=== PATIENT | female | born 1945 | race Caucasian/White ===

== ENCOUNTER 2016-12-21 13:38 | Outpatient (CLI) | payer OTHER ==
[2016-12-21 18:55] LABS: HEMOGLOBIN A1C 0.5 g/dL
[2016-12-21 19:01] LABS: BUN - BLOOD UREA NITROGEN 18 mg/dL (6-20); CALCIUM 9.2 mg/dL (8.5-10.3); CARBON DIOXIDE - CO2 30 mmol/L (21-32); CHLORIDE 102 mmol/L (101-111); CHOL/HDL RATIO 3.2 (<4.4); CHOLESTEROL 162 mg/dL; GFR - MDRD 54 (>89); GLUCOSE 101 mg/dL (70-100); HDL CHOLESTEROL 51 mg/dL; LDL/HDL RATIO 1.9 (<4.4); POTASSIUM 4.3 mmol/L (3.5-5.0); SODIUM 138 mmol/L (135-145); TRIGLYCERIDES 77 mg/dL; VLDL CHOLESTEROL 15 mg/dL
== END 2016-12-21 13:39 | disposition home or self-care (01) ==
LOC: LAB.F 13:38
PROVIDERS: ATTEND Internal Medicine
DX: N19 Unspecified kidney failure (principal); R73.01 Impaired fasting glucose
CPT/HCPCS: 36415; 80048; 80061; 83036

== ENCOUNTER 2017-03-19 14:13 | Outpatient (CLI) | payer MEDICARE ==
--- NOTE | 2017-03-20 19:14 | Mammography Report ---
DIGITAL SCREENING MAMMOGRAM: 03/19/2017 CLINICAL INDICATION: A 71-year-old with history of late childbearing for screening. COMPARISON: 09/2015, 06/2011, 05/2009. TECHNIQUE: Routine CC and MLO projections were obtained of the breasts. FINDINGS: Scattered fibroglandular tissue is present within the breasts. There are no dominant mass es, suspicious microcalcifications, or secondary signs of malignancy. In comparison to the previous s tudies, there are no significant changes. ASSESSMENT: NO MAMMOGRAPHIC EVIDENCE OF MALIGNANCY. NO SIGNIFICANT INTERVAL CHANGES. RECOMMENDATION: Screening mammography is recommended annually. BIRADS category 1 - negative. STANDARD QUALIFYING STATEMENTS 1. This examination was reviewed with the aid of Computed-Aided Detection (CAD). 2. A negative or benign imaging report should not delay biopsy if clinically suspicious findings are present. Consider surgical consultation if warranted. More than 5% of cancers are not identified b y imaging. 3. Dense breasts may obscure an underlying neoplasm. JOB #: [id number] EXT JOB #:[id number]
== END 2017-03-19 14:14 | disposition home or self-care (01) ==
LOC: DI 14:13
PROVIDERS: ATTEND Internal Medicine
DX: Z12.31 Encounter for screening mammogram for malignant neoplasm of breast (principal)
CPT/HCPCS: 77067

== ENCOUNTER 2017-03-19 14:14 | Outpatient (CLI) | payer MEDICARE, OTHER ==
--- NOTE | 2017-03-21 14:54 | DEXA Report ---
DEXA SCAN: 03/19/2017 CLINICAL INDICATION: Postmenopausal. TECHNIQUE: Dual energy x-ray absorptiometry (DXA) was performed on a Rayspan system. Regions measured are the AP spine, femoral neck, and, if needed, forearm. COMPARISON: None. In accordance with the International Society for Clinical Densitometry (ISCD) guidelines, data from previous exams may be reanalyzed using current recommendations and techniques. This is done to allow a more accurate basis for comparison with the current study. FINDINGS The data for the lumbar spine is as follows: REGION BMD (g/cm/cm) T-SCORE Z-SCORE L1 1.422 2.4 4.0 L2 1.376 1.5 3.0 L3 1.575 3.1 4.7 L4 1.970 6.4 8.0 TOTAL 1.603 3.5 5.1 NOTE: All evaluable vertebrae are used for classification. The data for the hip is as follows: REGION BMD (g/cm/cm) T-SCORE Z-SCORE Neck 1.125 0.6 2.4 TOTAL 1.139 1.0 2.6 NOTE: The femoral neck or total proximal femur, whichever is lowest, is used for classification. IMPRESSION: THE WHO CLASSIFICATION BASED ON THE INTERNATIONAL REFERENCE STANDARD IS NORMAL. THE FRACTURE RISK IS NOT INCREASED. RECOMMENDATION: Patients with diagnosis of osteoporosis or osteopenia should have regular bone mineral density assessment. For those eligible for Medicare, routine testing is allowed once every 2 years. Testing frequency can be increased for patients who have rapidly progressing disease or for those who are receiving medical therapy to restore bone mass. COMMENT: World Health Organization (WHO) definitions for osteoporosis and osteopenia: NORMAL BMD: T-score at -1.0 or higher, fracture risk is low. OSTEOPENIA BMD: T-score between -1.0 and -2.5, fracture risk is increased. OSTEOPOROSIS BMD: T-score at -2.5 or lower, fracture risk high. National Osteoporosis Foundation recommends: 1. Obtain adequate dietary calcium (at least 1200 mg per day) and vitamin D (400 -800 international units per day). 2. Participate, as appropriate, in regular weightbearing and muscle- strengthening exercise. 3. Avoid tobacco use and reduce alcohol and caffeine intake. 4. For more detailed information see the website at www.NOF.org. MTDD
== END 2017-03-19 14:15 | disposition home or self-care (01) ==
LOC: DI 14:14
PROVIDERS: ATTEND Internal Medicine
DX: Z13.820 Encounter for screening for osteoporosis (principal)
CPT/HCPCS: 77080

== ENCOUNTER 2018-01-10 14:35 | Outpatient (CLI) | payer MEDICARE ==
[2018-01-10 15:00] LABS: CALCIUM 9.2 mg/dL (8.5-10.3); CREATININE 1.2 mg/dL (0.4-1.0)
== END 2018-01-10 14:36 | disposition home or self-care (01) ==
LOC: LAB 14:35
PROVIDERS: ATTEND Internal Medicine
DX: N19 Unspecified kidney failure (principal)
CPT/HCPCS: 36415; 80048

== ENCOUNTER 2018-05-03 09:08 | Outpatient (CLI) | payer MEDICARE ==
[2018-05-03 17:49] LABS: BASOPHILS % (AUTO) 0.7 %; EOSINOPHILS # (AUTO) 0.4 10^3/uL (0.0-0.7); EOSINOPHILS % (AUTO) 6.4 %; HGB - HEMOGLOBIN 13.2 g/dL (12.0-16.0); LYMPHOCYTES # (AUTO) 3.4 10^3/uL (1.5-3.5); LYMPHOCYTES % (AUTO) 53.4 %; MEAN CORPUSCULAR HEMOGLOBIN 29.3 pg (27.0-31.0); MEAN CORPUSCULAR HGB CONC 32.3 g/dL (32.0-36.0); MEAN CORPUSCULAR VOLUME 90.8 fL (81.0-99.0); MEAN PLATELET VOLUME 8.8 fL (7.9-10.8); MONOCYTES # (AUTO) 0.6 10^3/uL (0.0-1.0); MONOCYTES % (AUTO) 8.7 %; NEUTROPHILS % (AUTO) 30.8 %; PLT - PLATELET COUNT 240 10^3/uL (130-450); RED BLOOD COUNT 4.48 10^6/uL (4.20-5.40); RED CELL DISTRIBUTION WIDTH 13.8 % (12.0-15.0); WHITE BLOOD COUNT 6.4 x10^3/uL (4.8-10.8)
[2018-05-03 18:13] LABS: HEMOGLOBIN A1C 0.47 g/dL; HEMOGLOBIN A1C % 5.2 % (4.6-6.2)
[2018-05-03 18:20] LABS: ALBUMIN 4.1 g/dL (3.2-5.5); ALBUMIN/GLOBULIN RATIO 1.4 (1.0-2.2); ALKALINE PHOSPHATASE 89 IU/L (42-121); ALT ALANINE AMINOTRANSFERASE 43 IU/L (10-60); AST ASPARTATE AMINOTRANSFERASE 31 IU/L (10-42); BILIRUBIN,TOTAL 0.3 mg/dL (0.2-1.0); BUN - BLOOD UREA NITROGEN 24 mg/dL (6-20); CALCIUM 9.1 mg/dL (8.5-10.3); CARBON DIOXIDE - CO2 28 mmol/L (21-32); CHLORIDE 106 mmol/L (101-111); CHOL/HDL RATIO 4.2 (<4.4); CHOLESTEROL 179 mg/dL; GFR - MDRD 54 (>89); GLUCOSE 107 mg/dL (70-100); HDL CHOLESTEROL 43 mg/dL; LDL CHOLESTEROL,CALCULATED 113 mg/dL; LDL/HDL RATIO 2.6 (<4.4); SODIUM 140 mmol/L (135-145); VLDL CHOLESTEROL 23 mg/dL
== END 2018-05-03 09:09 | disposition home or self-care (01) ==
LOC: LAB.F 09:08
PROVIDERS: ATTEND Internal Medicine
DX: R73.01 Impaired fasting glucose (principal); Z13.6 Encounter for screening for cardiovascular disorders; M54.5 Low back pain; M79.605 Pain in left leg; M79.604 Pain in right leg; N19 Unspecified kidney failure; F34.1 Dysthymic disorder; Z12.12 Encounter for screening for malignant neoplasm of rectum
CPT/HCPCS: 36415; 80053; 80061; 83036; 83721; 84443; 85025

== ENCOUNTER 2019-02-04 10:34 | Outpatient (CLI) | payer MEDICARE ==
--- NOTE | 2019-02-04 12:13 | XRAY Report ---
Reason: COUGH Procedure Date: 02/04/2019 Accession Number: [id number] / [id number] Procedure: XRS - Chest 2 View X-Ray CPT Code: 66536 FULL RESULT: EXAM: CHEST RADIOGRAPHY EXAM DATE: 02/04/2019 10:49 AM. CLINICAL HISTORY: COUGH. COMPARISON: None. TECHNIQUE: 2 views. FINDINGS: Lungs/Pleura: No focal opacities evident. No pleural effusion. No pneumothorax. Normal volumes. Mediastinum: Heart and mediastinal contours are unremarkable. Other: None. IMPRESSION: Normal 2-view chest radiography. RADIA
== END 2019-02-04 10:35 | disposition home or self-care (01) ==
LOC: DI.S 10:34
PROVIDERS: ATTEND Internal Medicine
DX: R05 Cough (principal)
CPT/HCPCS: 71046

== ENCOUNTER 2019-05-19 08:00 | Outpatient (CLI) | payer MEDICARE | END 2019-05-19 23:59 | disposition home or self-care (01) | LOC: LAB.R 08:00 | PROVIDERS: ATTEND Internal Medicine | DX: Z12.11 Encounter for screening for malignant neoplasm of colon (principal); Z12.12 Encounter for screening for malignant neoplasm of rectum | CPT/HCPCS: 82274 ==

== ENCOUNTER 2020-03-30 12:56 | Outpatient (CLI) | payer MEDICARE ==
--- NOTE | 2020-03-30 16:50 | MRI Report ---
PROCEDURE: Cervical Spine W/O INDICATIONS: SPINAL STENOSIS, LEG WEAKNESS, RADICULOPATHY TECHNIQUE: Noncontrast sagittal T1 spin echo and T2 fast spin echo, sagittal STIR, foraminal oblique sagittal T2 fast spin echo, and axial gradient echo or T2 fast spin echo through the cervical spine. COMPARISON: None. FINDINGS: Image quality: Excellent. Alignment and Curvature: There is normal bony alignment. Bone Marrow: Discogenic marrow signal changes along the endplates. No suspicious focal marrow signal abnormality or bone marrow edema. Spinal Cord: Visualized spinal cord has normal size and signal. No cerebellar tonsillar herniation. Regional Soft Tissues: No paravertebral masses. Prevertebral soft tissues are normal in thickness. C2-C3: No spinal canal or neural foraminal stenosis. C3-C4: Posterior disc-osteophyte complex flattens and indents the ventral thecal sac and the right paracentral and subarticular zones. Facet and uncovertebral hypertrophy contribute to moderate right and mild left neural foraminal stenosis. C4-C5: Posterior disc-osteophyte complex flattens the ventral thecal sac. No mass effect upon the co rd. Facet and uncovertebral hypertrophy contribute to severe right and moderate left neural foraminal stenosis. C5-C6: Posterior disc osteophyte complex flattens the ventral thecal sac, completely effacing CSF ve ntral to the cord and mildly flattening the cord ventrally. Facet uncovertebral hypertrophy contribut e to severe left and right and moderate left neural foraminal stenosis. C6-C7: Posterior disc-osteophyte complex flattens the ventral thecal sac, effacing CSF ventral to th e cord and slightly flattening the ventral cord. Facet and uncovertebral hypertrophy. Moderate bilate ral neural foraminal stenosis. C7-T1: No spinal canal or neural foraminal stenosis. IMPRESSION: Advanced multilevel multifactorial degenerative changes. Moderate spinal canal stenosis at C5-C6 and C6-C7. Varying degrees of neural foraminal stenosis, severe on the right at C4-C5 and left at C5-C6. Reviewed by: Dawood Belle MD on 03/30/2020 4:49 PM PDT Approved by: Dawood Belle MD on 03/30/2020 4:49 PM PDT Station ID: [id number]
--- NOTE | 2020-03-30 17:17 | MRI Report ---
PROCEDURE: Lumbar Spine W/O INDICATIONS: SPINAL STENOSIS, LEG WEAKNESS, RADICULOPATHY TECHNIQUE: Noncontrast sagittal T1 spin echo and T2 fast echo, sagittal STIR, axial T1 and T2 fast spin echo thr ough the lumbar spine. In cases with scoliosis, additional coronal T2 fast spin echo may be performe d. COMPARISON: None. FINDINGS: Image quality: Excellent. Alignment and Curvature: Anterolisthesis of L4 on L5 measuring 7 mm. No definite evidence of an assoc iated pars defect. Otherwise normal alignment. Vertebral body heights maintained. Bone Marrow: Degenerative endplate changes at multiple levels including mildly edematous marrow signa l change at the L4-L5 and L5-S1 endplates. There is also periarticular marrow edema extending into th e pedicles from L3-L4 through L5-S1 related to facet osteophyte or adenopathy. No suspicious focal ma rrow signal abnormality. Spinal Cord: Normal position and appearance of the conus. Regional Soft Tissues: Mild soft tissue edema surrounding the L3-L4 through L5-S1 facets. T12-L1 and L1-L2: No spinal canal or neural foraminal stenosis. L2-L3: Mild bilateral neural foraminal stenosis related to foraminal components of a diffuse disc bul ge. No spinal canal stenosis. L3-L4: Diffuse disc bulge and a superimposed broad-based posterior disc protrusion flattens and ind ents the ventral thecal sac with mild mass effect upon the traversing L4 nerve roots. Foraminal compo nents of a disc bulge combine with facet facet hypertrophy and buckling of the ligamentum flavum to p roduce mild bilateral neural foraminal stenosis. L4-L5: Pseudobulge related to the anterolisthesis combines with a true disc bulge, bulky facet hype rtrophy, and buckling of the ligamentum flavum to produce overall moderate spinal canal stenosis with severe bilateral subarticular zone stenosis. Suspect impingement of the L5 nerve roots. There is a s ynovial cyst of the right facet measuring 7 mm which further contributes to spinal canal and subartic ular zone stenosis. Foraminal components of a disc bulge combined with neural foraminal height loss, facet hypertrophy, and buckling of the ligamentum flavum to produce severe right and moderate left ne ural foraminal stenosis. There is flattening and deformation of the exiting right L4 nerve root by di sc material within the neural foramen. L5-S1: Diffuse disc bulge and a superimposed broad-based posterior disc protrusion flattening the s ac. Disc material abuts and mildly displaces the descending S1 nerve roots within both subarticular z ones. Foraminal components of the disc bulge contribute to severe left and moderate right neural fora devante stenosis. There is flattening and deformation of the exiting left L5 nerve root by disc materia l within the neural foramen. IMPRESSION: Multilevel multifactorial degenerative changes worst at L4-L5 and L5-S1. Correlate for any correspond ing L4-L5 radicular symptoms. Reviewed by: Dawood Belle MD on 03/30/2020 5:15 PM PDT Approved by: Dawood Belle MD on 03/30/2020 5:15 PM PDT Station ID: [id number]
== END 2020-03-30 12:57 | disposition home or self-care (01) ==
LOC: DI 12:56
PROVIDERS: ATTEND Internal Medicine
DX: M47.812 Spondylosis without myelopathy or radiculopathy, cervical region (principal); M50.31 Other cervical disc degeneration, high cervical region; M48.02 Spinal stenosis, cervical region; M51.26 Other intervertebral disc displacement, lumbar region; M47.816 Spondylosis without myelopathy or radiculopathy, lumbar region; M43.16 Spondylolisthesis, lumbar region; M47.817 Spondylosis without myelopathy or radiculopathy, lumbosacral region; M51.06 Intervertebral disc disorders with myelopathy, lumbar region; M51.16 Intervertebral disc disorders with radiculopathy, lumbar region; M48.061 Spinal stenosis, lumbar region without neurogenic claudication; M51.37 Other intervertebral disc degeneration, lumbosacral region; M48.07 Spinal stenosis, lumbosacral region; M51.27 Other intervertebral disc displacement, lumbosacral region
CPT/HCPCS: 72141; 72148

== ENCOUNTER 2020-04-23 11:24 | Outpatient (CLI) | payer MEDICARE ==
[2020-04-23 15:20] LABS: ALBUMIN 4.5 g/dL (3.2-5.5); ALBUMIN/GLOBULIN RATIO 1.6 (1.0-2.2); BILIRUBIN,TOTAL 0.8 mg/dL (0.2-1.0); CALCIUM 9.2 mg/dL (8.5-10.3); TOTAL PROTEIN 7.3 g/dL (6.7-8.2)
[2020-04-23 15:37] LABS: THYROID STIMULATING HORMONE 2.02 uIU/mL (0.34-5.60)
[2020-04-23 15:39] LABS: FREE T4 (FREE THYROXINE) 1.04 ng/dL (0.58-1.64)
[2020-04-23 20:08] LABS: HEMOGLOBIN A1c% 5.1 % (4.27-6.07)
== END 2020-04-23 11:25 | disposition home or self-care (01) ==
LOC: LAB.S 11:24
PROVIDERS: ATTEND Internal Medicine
DX: R73.01 Impaired fasting glucose (principal); E02 Subclinical iodine-deficiency hypothyroidism; Z79.899 Other long term (current) drug therapy
CPT/HCPCS: 36415; 80053; 83036; 84439; 84443

== ENCOUNTER 2021-04-21 10:13 | Outpatient (CLI) | payer MEDICARE ==
--- NOTE | 2021-04-21 13:29 | MRI Report ---
PROCEDURE: Lumbar Spine W/O INDICATIONS: LUMBAR SPINAL STENOSIS TECHNIQUE: Noncontrast sagittal T1 spin echo and T2 fast echo, sagittal STIR, axial T1 and T2 fast spin echo thr ough the lumbar spine. In cases with scoliosis, additional coronal T2 fast spin echo may be performe d. COMPARISON: MRI of the lumbar spine dated 03/30/2020 FINDINGS: Image quality: Excellent. Alignment and Curvature: No plain films are available for comparison. Thus, for numbering purposes, 5 lumbar type vertebral bodies will be presumed for the current report. This should be confirmed with plain film correlation prior to any lumbar spinal intervention. There is mild, grade 1 anterolisthes is of L4 on L5. Bone Marrow: Marrow is of normal overall signal. No acute vertebral body compression fractures. Mo derate reactive signal within the end plates adjacent to the L4-L5 and L5-S1 intervertebral discs. Mi ld reactive signal within the end plates adjacent to the L1-L2, L2-L3, and L3-L4 intervertebral discs . Spinal Cord: Conus medullaris terminates at the lower L1 level. Visualized cord demonstrates normal signal and size. Paraspinous Soft Tissues: No paravertebral masses. T12-L1: Mild disc height loss and desiccation. Mild facet and ligament flavum hypertrophy. Mild mehnaz l stenosis. No foraminal stenosis. No significant change. L1-L2: Mild facet and ligament flavum hypertrophy. Mild epidural lipomatosis. Mild canal stenosis. Mild bilateral foraminal stenosis. No significant change. L2-L3: Mild disc desiccation and diffuse disc bulge. Mild facet and ligament flavum hypertrophy. M ild epidural lipomatosis. Mild canal stenosis. Mild bilateral foraminal stenosis. No significant kraft ge. L3-L4: Mild disc height loss and desiccation. Mild diffuse disc bulge. Mild facet and ligament flav um hypertrophy. Mild epidural lipomatosis. Moderate canal stenosis. Mild bilateral foraminal stenosis . No significant change. L4-L5: Severe disc height loss and desiccation. Mild diffuse disc bulge with superimposed broad-bas ed right far lateral protrusion/osteophyte. Moderate facet and ligament flavum hypertrophy. Mild epid ural lipomatosis. There is increased, moderate to severe canal stenosis. There is severe right and mo derate left subarticular foraminal stenosis. Right L4 nerve root compression. No significant change. L5-S1: Moderate disc height loss and desiccation. Mild diffuse disc bulge. Mild facet and ligament flavum hypertrophy. Mild canal stenosis. Severe left and moderate to severe right foraminal stenosis. Left greater than right L5 nerve root compression. No significant change. IMPRESSION: 1. Multilevel degenerative disc and facet disease, in addition to epidural lipomatosis and ligamentum flavum hypertrophy. 2. Multilevel canal stenoses, worst at L4-L5 where there is moderate to severe canal stenosis. 3. Multilevel foraminal stenoses, worst at L4-L5 and L5-S1, where there is associated intraforaminal nerve root compression. Recommend correlation with clinical symptoms to ascertain relevance of these findings. 4. Five lumbar type vertebral bodies were presumed for the purposes of the current report. Correlati on with plainfilms for numbering purposes is recommended prior to any lumbar spinal intervention. Reviewed by: Steve Liao MD on 04/21/2021 1:27 PM PST Approved by: Steve Liao MD on 04/21/2021 1:27 PM PST Station ID: [id number]
== END 2021-04-21 10:14 | disposition home or self-care (01) ==
LOC: DI 10:13
PROVIDERS: ATTEND Family Medicine
DX: M47.816 Spondylosis without myelopathy or radiculopathy, lumbar region (principal); E88.2 Lipomatosis, not elsewhere classified; M51.36 Other intervertebral disc degeneration, lumbar region; M48.062 Spinal stenosis, lumbar region with neurogenic claudication; M48.07 Spinal stenosis, lumbosacral region

== ENCOUNTER 2021-08-22 08:00 | Outpatient (CLI) | payer MEDICARE ==
[2021-08-22 15:48] LABS: BASOPHILS % (AUTO) 0.4 %; EOSINOPHILS # (AUTO) 0.2 10^3/uL (0.0-0.7); HCT - HEMATOCRIT 44.5 % (37.0-47.0); HGB - HEMOGLOBIN 14.7 g/dL (12.0-16.0); LYMPHOCYTES # (AUTO) 3.9 10^3/uL (1.5-3.5); LYMPHOCYTES % (AUTO) 43.8 %; MEAN CORPUSCULAR HEMOGLOBIN 30.2 pg (27.0-31.0); MEAN CORPUSCULAR VOLUME 91.6 fL (81.0-99.0); MEAN PLATELET VOLUME 11.3 fL (7.9-10.8); MONOCYTES # (AUTO) 0.6 10^3/uL (0.0-1.0); MONOCYTES % (AUTO) 6.9 %; NEUTROPHILS # (AUTO) 4.2 10^3/uL (1.5-6.6); NEUTROPHILS % (AUTO) 46.7 %; PLT - PLATELET COUNT 211 10^3/uL (130-450); RED BLOOD COUNT 4.86 10^6/uL (4.20-5.40); RED CELL DISTRIBUTION WIDTH 12.6 % (12.0-15.0); WHITE BLOOD COUNT 8.9 x10^3/uL (4.8-10.8)
[2021-08-22 15:49] LABS: INR 0.9 (0.8-1.2); PT - PROTHROMBIN TIME 10.2 secs (9.9-12.6)
[2021-08-22 15:56] LABS: PARTIAL THROMBOPLASTIN TIME 17.9 secs (24.9-33.3)
[2021-08-22 15:58] LABS: ALBUMIN 4.9 g/dL (3.2-5.5); ALBUMIN/GLOBULIN RATIO 1.6 (1.0-2.2); BILIRUBIN,TOTAL 0.2 mg/dL (0.2-1.0); POTASSIUM 3.5 mmol/L (3.5-5.0)
[2021-08-22 20:54] LABS: ESTIMATED AVERAGE GLUCOSE 114 mg/dL (70-100); HEMOGLOBIN A1c% 5.6 % (4.27-6.07)
== END 2021-08-22 23:59 ==
LOC: LAB.R 08:00
PROVIDERS: ATTEND Internal Medicine
DX: Z01.812 Encounter for preprocedural laboratory examination (principal); R73.01 Impaired fasting glucose; M48.00 Spinal stenosis, site unspecified
CPT/HCPCS: 80053; 83036; 85025; 85610; 85730

== ENCOUNTER 2021-08-22 14:53 | Outpatient (CLI) | payer MEDICARE | END 2021-08-22 14:54 | disposition home or self-care (01) | LOC: LAB 14:53 | PROVIDERS: ATTEND Internal Medicine | DX: Z53.9 Procedure and treatment not carried out, unspecified reason (principal) | CPT/HCPCS: 87640 ==

== ENCOUNTER 2021-08-25 12:58 | Outpatient (CLI) | payer MEDICARE | END 2021-08-25 12:59 | disposition home or self-care (01) | LOC: LAB.S 12:58 | PROVIDERS: ATTEND Internal Medicine | DX: Z01.812 Encounter for preprocedural laboratory examination (principal) | CPT/HCPCS: 87640 ==

== ENCOUNTER 2021-11-01 08:00 | Outpatient (CLI) | payer MEDICARE ==
[2021-11-01 18:15] LABS: BASOPHILS % (AUTO) 0.3 %; EOSINOPHILS # (AUTO) 0.2 10^3/uL (0.0-0.7); EOSINOPHILS % (AUTO) 2.3 %; HCT - HEMATOCRIT 42.8 % (37.0-47.0); HGB - HEMOGLOBIN 13.9 g/dL (12.0-16.0); LYMPHOCYTES # (AUTO) 4.9 10^3/uL (1.5-3.5); LYMPHOCYTES % (AUTO) 55.3 %; MEAN CORPUSCULAR HEMOGLOBIN 28.4 pg (27.0-31.0); MEAN CORPUSCULAR HGB CONC 32.5 g/dL (32.0-36.0); MEAN CORPUSCULAR VOLUME 87.5 fL (81.0-99.0); MONOCYTES # (AUTO) 0.6 10^3/uL (0.0-1.0); MONOCYTES % (AUTO) 7.2 %; NEUTROPHILS # (AUTO) 3.1 10^3/uL (1.5-6.6); NEUTROPHILS % (AUTO) 34.8 %; PLT - PLATELET COUNT 209 10^3/uL (130-450); RED BLOOD COUNT 4.89 10^6/uL (4.20-5.40); RED CELL DISTRIBUTION WIDTH 13.8 % (12.0-15.0); WHITE BLOOD COUNT 8.8 x10^3/uL (4.8-10.8)
[2021-11-01 18:20] LABS: ALBUMIN 4.4 g/dL (3.2-5.5); ALBUMIN/GLOBULIN RATIO 1.4 (1.0-2.2); BILIRUBIN,TOTAL 0.5 mg/dL (0.2-1.0); CALCIUM 9.5 mg/dL (8.5-10.3); CREATININE 0.8 mg/dL (0.4-1.0); TOTAL PROTEIN 7.5 g/dL (6.7-8.2)
[2021-11-01 18:36] LABS: THYROID STIMULATING HORMONE 2.42 uIU/mL (0.34-5.60)
== END 2021-11-01 23:59 | disposition home or self-care (01) ==
LOC: LAB.R 08:00
PROVIDERS: ATTEND Internal Medicine
DX: R19.5 Other fecal abnormalities (principal); R53.83 Other fatigue
CPT/HCPCS: 80053; 82306; 82607; 84443; 85025

== ENCOUNTER 2022-08-04 08:14 | Outpatient (CLI) | payer MEDICARE ==
[2022-08-04 14:44] LABS: BASOPHILS % (AUTO) 0.4 %; EOSINOPHILS # (AUTO) 0.3 10^3/uL (0.0-0.7); EOSINOPHILS % (AUTO) 2.9 %; HCT - HEMATOCRIT 41.6 % (37.0-47.0); HGB - HEMOGLOBIN 13.2 g/dL (12.0-16.0); LYMPHOCYTES % (AUTO) 40.7 %; MEAN CORPUSCULAR HEMOGLOBIN 30.1 pg (27.0-31.0); MEAN CORPUSCULAR HGB CONC 31.7 g/dL (32.0-36.0); MEAN PLATELET VOLUME 11.1 fL (7.9-10.8); MONOCYTES # (AUTO) 0.7 10^3/uL (0.0-1.0); MONOCYTES % (AUTO) 7.6 %; NEUTROPHILS # (AUTO) 4.7 10^3/uL (1.5-6.6); NEUTROPHILS % (AUTO) 48.2 %; PLT - PLATELET COUNT 191 10^3/uL (130-450); RED BLOOD COUNT 4.38 10^6/uL (4.20-5.40); WHITE BLOOD COUNT 9.8 x10^3/uL (4.8-10.8)
[2022-08-04 15:00] LABS: ESTIMATED AVERAGE GLUCOSE 111 mg/dL (70-100); HEMOGLOBIN A1c% 5.5 % (4.27-6.07)
[2022-08-04 15:07] LABS: ALBUMIN 4.1 g/dL (3.2-5.5); ALBUMIN/GLOBULIN RATIO 1.4 (1.0-2.2); ALKALINE PHOSPHATASE 76 IU/L (42-121); ALT ALANINE AMINOTRANSFERASE 21 IU/L (10-60); AST ASPARTATE AMINOTRANSFERASE 21 IU/L (10-42); BILIRUBIN,TOTAL 0.8 mg/dL (0.2-1.0); BUN - BLOOD UREA NITROGEN 31 mg/dL (6-20); CALCIUM 9.2 mg/dL (8.5-10.3); CARBON DIOXIDE - CO2 27 mmol/L (21-32); CHLORIDE 109 mmol/L (101-111); CHOL/HDL RATIO 4.7 (<4.4); CHOLESTEROL 192 mg/dL; CREATININE 1.1 mg/dL (0.4-1.0); GFR - MDRD 48 (>89); GLUCOSE 116 mg/dL (70-100); HDL CHOLESTEROL 41 mg/dL; LDL CHOLESTEROL,CALCULATED 116 mg/dL; LDL/HDL RATIO 2.8 (<4.4); POTASSIUM 4.5 mmol/L (3.5-5.0); SODIUM 142 mmol/L (135-145); TOTAL PROTEIN 7.1 g/dL (6.7-8.2); TRIGLYCERIDES 174 mg/dL; VLDL CHOLESTEROL 35 mg/dL
[2022-08-04 15:16] LABS: THYROID STIMULATING HORMONE 4.34 uIU/mL (0.34-5.60)
[2022-08-04 15:18] LABS: FREE T4 (FREE THYROXINE) 0.91 ng/dL (0.58-1.64)
[2022-08-04 15:22] LABS: FERRITIN 69.5 ng/mL (11.0-306.8)
== END 2022-08-04 08:15 | disposition home or self-care (01) ==
LOC: LAB.S 08:14
PROVIDERS: ATTEND Internal Medicine
DX: R05.1 Acute cough (principal); R60.9 Edema, unspecified; R73.01 Impaired fasting glucose; N28.9 Disorder of kidney and ureter, unspecified; M25.561 Pain in right knee; M72.2 Plantar fascial fibromatosis; E03.8 Other specified hypothyroidism; Z79.899 Other long term (current) drug therapy
CPT/HCPCS: 36415; 80053; 80061; 82728; 83036; 83721; 84439; 84443; 85025

== ENCOUNTER 2022-08-04 16:07 | Outpatient (CLI) | payer MEDICARE ==
--- NOTE | 2022-08-04 17:52 | Ultrasound Report ---
PROCEDURE: Duplex Ext Veins Bilateral INDICATIONS: Ira Milton MD TECHNIQUE: Real-time imaging, as well as color and pulse Doppler interrogation, were performed of the deep veins of both legs from the inguinal ligament to the popliteal fossa. COMPARISON: None. FINDINGS: The deep veins are normally compressible, and free of intraluminal thrombus. Color and pu lse Doppler demonstrate normal phasic intravascular flow. There is normal augmentation response to d istal compression maneuver. Along the anterior right knee, there is an irregular, nonvascular fluid collection that measures 9.2 x 5.5 x 2.2 cm. IMPRESSION: No findings of deep venous thrombosis are seen. Likely hematoma seen anterior to the right knee. Note: Concordant preliminary findings given by the chief power dispatcher upon the completion of the examination to Ira Milton at 5:32 PM on 08/04/2022. Reviewed by: Abhishek Cantrell MD on 08/04/2022 4:51 PM AKST Approved by: Abhishek Cantrell MD on 08/04/2022 4:51 PM [place] Station ID: [id number]
== END 2022-08-04 16:08 | disposition home or self-care (01) ==
LOC: DI 16:07
PROVIDERS: ATTEND Internal Medicine
DX: R60.9 Edema, unspecified (principal); R05.1 Acute cough; R73.01 Impaired fasting glucose; N28.9 Disorder of kidney and ureter, unspecified; M25.561 Pain in right knee; M72.2 Plantar fascial fibromatosis; E03.8 Other specified hypothyroidism; Z79.899 Other long term (current) drug therapy
CPT/HCPCS: 36415; 80053; 80061; 82728; 83036; 83721; 84439; 84443; 85025; 93970

== ENCOUNTER 2022-08-08 08:06 | Outpatient (CLI) | payer MEDICARE ==
--- NOTE | 2022-08-09 12:35 | Mammography Report ---
BILATERAL DIGITAL SCREENING MAMMOGRAM 3D/2D: 08/08/2022 CLINICAL: Routine screening. Comparison is made to exams dated: 03/19/2017 mammogram and 09/27/2015 mammogram - [facility]. Both breasts are almost entirely fatty (category a/<25% glandular tissue). No significant masses, calcifications, or other findings are seen in either breast. There has been no significant interval change. IMPRESSION: NEGATIVE There is no mammographic evidence of malignancy. A 1 year screening mammogram is recommended. Based on the Tyrer Cuzick model (a risk assessment model) the patients lifetime risk is 1.6% and her 10 year risk is 0.0%. According to the ACR, ACS, and NCCN guidelines, an annual breast MRI exam zbigniew g with mammogram is recommended if the patients lifetime risk is 20% or greater. This exam was interpreted at Station ID: [id number]. NOTE: For mammograms, a report in lay terms will be sent to the patient. Approximately 15% of breast malignancies will not be visualized mammographically. In the management of a palpable breast mass, a negative mammogram must not discourage biopsy of a clinically suspicious lesion. Electronically Signed By: Yari pineda/eulogio:08/09/2022 07:50:23 letter sent: No_Letter ACR BI-RADS Category 1: Negative 3341F PARENCHYMAL PATTERN: (F) - The breast(s) demonstrate(s) diffuse fatty replacement. BI-RADS CATEGORY: (1) - 1 Mammogram [id number] 1 year screening LATERALITY: (B)
== END 2022-08-08 08:07 | disposition home or self-care (01) ==
LOC: DI.S 08:06
DX: Z12.31 Encounter for screening mammogram for malignant neoplasm of breast (principal)